=== PATIENT | female | born 1995 | race Caucasian/White ===

== ENCOUNTER 2018-04-02 14:07 | Emergency (ER) | payer OTHER ==
[~2018-04-02] VITALS: Ht 172.7 cm; Wt 69.1 kg
[~2018-04-02 14:07] MED LIST: DOXYCYCLINE 10100 MG PO; GENTAMICIN OPTHA3 GM OD; ULTRAM 50MG TAB50 MG PO
[2018-04-02 14:12] VITALS: BP 122/68; TEMP 96.8
[2018-04-02 16:18] VITALS: PULSE 70
== END 2018-04-02 16:20 | disposition home or self-care (01) ==
LOC: COL.ER 14:07
DX: S92.212A Displaced fracture of cuboid bone of left foot, initial encounter for closed fracture (principal); X50.0XXA Overexertion from strenuous movement or load, initial encounter; Y92.410 Unspecified street and highway as the place of occurrence of the external cause